=== PATIENT | male | born 1960 | race Asian ===

== ENCOUNTER 2017-12-17 03:59 | Emergency (ER) | payer OTHER ==
[~2017-12-17] VITALS: Ht 170.2 cm; Wt 72.6 kg
[2017-12-17 04:06] VITALS: Ht 170.2 cm; Wt 72.6 kg
[2017-12-17 04:40] LABS: BASOPHIL % 0.2 % (0-2); PLATELET COUNT 206 x10^3mcL (130-400); RED CELL DISTRIBUTION WIDTH 13.4 % (11.5-14.5)
[2017-12-17 04:46] LABS: CALCIUM 9.3 mg/dL (8.5-10.1); CARBON DIOXIDE 28.5 mmol/L (21-32); CREATININE SERUM 1.4 mg/dL (0.7-1.3); POTASSIUM SERUM 3.7 mmol/L (3.5-5.1)
[2017-12-17 04:50] LABS: ALBUMIN 4.1 g/dL (3.4-5.0); BILIRUBIN TOTAL 0.64 mg/dL (0.20-1.00); TOTAL PROTEIN, SERUM 7.7 g/dL (6.4-8.2)
[2017-12-17 06:18] VITALS: BP 105/67
== END 2017-12-17 06:18 | disposition home or self-care (01) ==
LOC: ED 03:59
PROVIDERS: Emergency Medicine
DX: R10.13 Epigastric pain (principal); R11.2 Nausea with vomiting, unspecified; R19.7 Diarrhea, unspecified; E78.00 Pure hypercholesterolemia, unspecified; I10 Essential (primary) hypertension
CPT/HCPCS: 83880; C9113; J1885; J2765; J7030

== ENCOUNTER 2018-11-03 23:13 | Emergency (ER) | payer OTHER ==
[2018-11-03 23:16] VITALS: Ht 172.7 cm
[2018-11-04 00:25] LABS: BASOPHIL % 0.2 % (0-2); PLATELET COUNT 193 x10^3mcL (130-400); RED CELL DISTRIBUTION WIDTH 12.4 % (11.5-14.5)
[2018-11-04 00:40] LABS: CALCIUM 9.6 mg/dL (8.5-10.1); CARBON DIOXIDE 31.2 mmol/L (21-32); CREATININE SERUM 1.3 mg/dL (0.7-1.3); POTASSIUM SERUM 4.8 mmol/L (3.5-5.1)
[2018-11-04 00:45] LABS: ALBUMIN 4.4 g/dL (3.4-5.0); BILIRUBIN TOTAL 0.7 mg/dL (0.20-1.00)
[2018-11-04 00:47] LABS: TOTAL PROTEIN, SERUM 8.5 g/dL (6.4-8.2)
[2018-11-04 01:53] VITALS: BP 135/88
== END 2018-11-04 01:54 | disposition home or self-care (01) ==
LOC: ED 23:13
PROVIDERS: Emergency Medicine
DX: K21.9 Gastro-esophageal reflux disease without esophagitis (principal); I10 Essential (primary) hypertension; E78.00 Pure hypercholesterolemia, unspecified
CPT/HCPCS: J2405; J3490